=== PATIENT | male | born 1930 | race Caucasian/White ===

== ENCOUNTER 2020-08-20 20:17 | Inpatient (IN) ==
[2020-08-21] MEDS ORDERED: Ondansetron 4 MG/2 ML VIAL IVP PRN (01:10)
[2020-08-21] MEDS ORDERED: Acetaminophen 325 MG TABLET PO PRN (01:10)
[2020-08-21] MEDS ORDERED: Naloxone 0.4 MG/ML INJ IVP PRN (01:10)
[2020-08-21 01:53] LABS: Basophils % 0.6 %; Eosinophils # 0.3 K/mcL (0.0-0.6); Eosinophils % 5.2 %; Hematocrit 31.9 % (37.5-50.1); Hemoglobin 9.6 g/dL (12.9-16.9); Immature Granulocytes % 0.2 % (0-4); Lymphocytes % 18.3 %; Mean Corpuscular HGB Conc 30.1 g/dL (31.6-35.5); Mean Corpuscular Volume 99.7 fL (83.0-100.0); Mean Platelet Volume 9.8 fL (9.4-12.4); Monocytes # 0.5 K/mcL (0.0-1.3); Monocytes % 10.2 %; Neutrophils # 3.4 K/mcL (1.6-8.9); Platelet Count 133 K/mcL (140-400); Red Cell Distribution Width 16.5 % (11.5-14.5); Segmented Neutrophils % 65.5 %; White Blood Count 5.2 K/mcL (4.3-11.1)
[2020-08-21 02:02] LABS: INR 1.8
[2020-08-21 02:13] LABS: BUN/Creatinine Ratio 16 (6-26); Blood Urea Nitrogen 20 mg/dL (8-23); Calcium 8.8 mg/dL (8.6-10.3); Carbon Dioxide 36 mEq/L (23-29); Chloride 104 mEq/L (98-107); Glucose 108 mg/dL (70-105); Osmolality,Calculated 301 (280-300); Potassium 4.1 mEq/L (3.5-5.1); Sodium 144 mEq/L (136-145); eGFR For African Americans > 60 (> 60); eGFR For Non-African Americans 54 (> 60)
[2020-08-21] MEDS: Finasteride 5 MG TABLET PO SCH (12:50)
[2020-08-21] MEDS: Sennosides/Docusate Sodium TABLET PO SCH ×2 (12:51→22:04)
[2020-08-21] MEDS ORDERED: *HR* HYDROcodone/Acet 5/325 mg TABLET PO PRN (15:02)
[2020-08-21] MEDS: Furosemide 40 MG TABLET PO SCH (17:05)
[2020-08-21] MEDS: Gabapentin 300 MG CAPSULE PO SCH (22:04)
[2020-08-22 07:37] LABS: Basophils % 0.7 %; Eosinophils # 0.2 K/mcL (0.0-0.6); Eosinophils % 4.4 %; Hematocrit 30.9 % (37.5-50.1); Hemoglobin 9.3 g/dL (12.9-16.9); Immature Granulocytes % 0.2 % (0-4); Lymphocytes # 0.8 K/mcL (0.6-4.6); Lymphocytes % 18.2 %; Mean Corpuscular HGB Conc 30.1 g/dL (31.6-35.5); Mean Corpuscular Hemoglobin 30.1 pg (28.0-33.3); Mean Platelet Volume 10.2 fL (9.4-12.4); Monocytes # 0.4 K/mcL (0.0-1.3); Neutrophils # 3.1 K/mcL (1.6-8.9); Platelet Count 136 K/mcL (140-400); Red Blood Count 3.09 M/mcL (4.19-5.50); Red Cell Distribution Width 16.5 % (11.5-14.5); Segmented Neutrophils % 67.5 %; White Blood Count 4.6 K/mcL (4.3-11.1)
[2020-08-22 08:01] LABS: BUN/Creatinine Ratio 19 (6-26); Blood Urea Nitrogen 21 mg/dL (8-23); Calcium 8.8 mg/dL (8.6-10.3); Carbon Dioxide 34 mEq/L (23-29); Chloride 106 mEq/L (98-107); Glucose 101 mg/dL (70-105); Osmolality,Calculated 299 (280-300); Sodium 143 mEq/L (136-145); eGFR For African Americans > 60 (> 60); eGFR For Non-African Americans > 60 (> 60)
[2020-08-22] MEDS: Sennosides/Docusate Sodium TABLET PO SCH ×2 (09:53→20:42)
[2020-08-22] MEDS: Gabapentin 300 MG CAPSULE PO SCH ×3 (09:53→20:43)
[2020-08-22] MEDS: Finasteride 5 MG TABLET PO SCH (09:54)
[2020-08-22] MEDS: Metoprolol XL (24 HR) Succ 50 MG TAB.ER.24H PO SCH (09:54)
[2020-08-22] MEDS: Furosemide 40 MG TABLET PO SCH (09:54)
[2020-08-22] MEDS: Furosemide 20 MG TABLET PO SCH (16:04)
[2020-08-23 01:46] LABS: Hematocrit 32.9 % (37.5-50.1); Hemoglobin 9.7 g/dL (12.9-16.9); Mean Corpuscular HGB Conc 29.5 g/dL (31.6-35.5); Mean Corpuscular Hemoglobin 29.4 pg (28.0-33.3); Mean Corpuscular Volume 99.7 fL (83.0-100.0); Mean Platelet Volume 10.2 fL (9.4-12.4); Platelet Count 141 K/mcL (140-400); Red Cell Distribution Width 16.5 % (11.5-14.5); White Blood Count 4.8 K/mcL (4.3-11.1)
[2020-08-23 02:02] LABS: BUN/Creatinine Ratio 16 (6-26); Blood Urea Nitrogen 21 mg/dL (8-23); Calcium 8.7 mg/dL (8.6-10.3); Carbon Dioxide 34 mEq/L (23-29); Chloride 104 mEq/L (98-107); Glucose 94 mg/dL (70-105); Osmolality,Calculated 299 (280-300); Potassium 3.9 mEq/L (3.5-5.1); Sodium 143 mEq/L (136-145); eGFR For African Americans > 60 (> 60); eGFR For Non-African Americans 53 (> 60)
[2020-08-23] MEDS: Sennosides/Docusate Sodium TABLET PO SCH ×2 (10:34→20:07)
[2020-08-23] MEDS: Cyanocobalamin (B-12) 1,000 MCG TABLET PO SCH (10:35)
[2020-08-23] MEDS: Gabapentin 300 MG CAPSULE PO SCH ×3 (10:35→20:07)
[2020-08-23] MEDS: Metoprolol XL (24 HR) Succ 50 MG TAB.ER.24H PO SCH (10:35)
[2020-08-23] MEDS: Furosemide 20 MG TABLET PO SCH ×2 (10:35→18:34)
[2020-08-23] MEDS: Finasteride 5 MG TABLET PO SCH (10:35)
[2020-08-24 05:55] LABS: Hematocrit 32.4 % (37.5-50.1); Hemoglobin 9.5 g/dL (12.9-16.9); Mean Corpuscular HGB Conc 29.3 g/dL (31.6-35.5); Mean Corpuscular Hemoglobin 29.6 pg (28.0-33.3); Mean Corpuscular Volume 100.9 fL (83.0-100.0); Mean Platelet Volume 9.9 fL (9.4-12.4); Platelet Count 146 K/mcL (140-400); Red Blood Count 3.21 M/mcL (4.19-5.50); Red Cell Distribution Width 16.5 % (11.5-14.5); White Blood Count 5.2 K/mcL (4.3-11.1)
[2020-08-24 06:14] LABS: BUN/Creatinine Ratio 18 (6-26); Blood Urea Nitrogen 22 mg/dL (8-23); Calcium 8.8 mg/dL (8.6-10.3); Carbon Dioxide 34 mEq/L (23-29); Chloride 105 mEq/L (98-107); Glucose 97 mg/dL (70-105); Osmolality,Calculated 299 (280-300); Sodium 143 mEq/L (136-145); eGFR For African Americans > 60 (> 60); eGFR For Non-African Americans 55 (> 60)
[2020-08-24] MEDS: Sennosides/Docusate Sodium TABLET PO SCH ×2 (09:47→21:07)
[2020-08-24] MEDS: Cyanocobalamin (B-12) 1,000 MCG TABLET PO SCH (09:48)
[2020-08-24] MEDS: Furosemide 20 MG TABLET PO SCH (09:50)
[2020-08-24] MEDS: Finasteride 5 MG TABLET PO SCH (09:50)
[2020-08-24] MEDS: Gabapentin 300 MG CAPSULE PO SCH ×3 (09:52→21:07)
[2020-08-24] MEDS: Metoprolol XL (24 HR) Succ 50 MG TAB.ER.24H PO SCH (09:52)
[2020-08-24] MEDS ORDERED: *HR* FentaNYL (PF) 100 MCG/2 ML VIAL ONE (16:40)
[2020-08-24] MEDS ORDERED: *HR* Propofol 200 MG/20 ML VIAL IVP ONE (16:40)
[2020-08-24] MEDS ORDERED: *HR* OxyCODONE Immed Rel 5 MG TABLET PO PRN (16:41)
[2020-08-24] MEDS ORDERED: Lidocaine -MPF 2% 2 ML VIAL ONE (16:41)
[2020-08-24] MEDS ORDERED: Ondansetron 4 MG/2 ML VIAL IVP PRN ×2 (16:41→19:15)
[2020-08-24] MEDS ORDERED: *HR* Labetalol 20 MG/4 ML SYRINGE IVP PRN (16:41)
[2020-08-24] MEDS ORDERED: Ondansetron 4 MG/2 ML VIAL ONE (17:15)
[2020-08-24] MEDS ORDERED: Clindamycin 600 MG/50 ML 600 MG/50 ML IV.SOLN IVPB ONE (17:21)
[2020-08-24] MEDS ORDERED: EPHEDrine 50 MG/ML VIAL ONE (17:31)
[2020-08-24] MEDS ORDERED: Acetaminophen 325 MG TABLET PO PRN (19:15)
[2020-08-24] MEDS ORDERED: *HR* HYDROcodone/Acet 5/325 mg TABLET PO PRN (19:15)
[2020-08-24] MEDS ORDERED: Naloxone 0.4 MG/ML INJ IVP PRN (19:15)
[2020-08-25] MEDS: Finasteride 5 MG TABLET PO SCH (08:08)
[2020-08-25] MEDS: Sennosides/Docusate Sodium TABLET PO SCH ×2 (08:09→20:08)
[2020-08-25] MEDS: Spironolactone 25 MG TABLET PO SCH (08:11)
[2020-08-25] MEDS: Gabapentin 300 MG CAPSULE PO SCH ×3 (08:11→20:08)
[2020-08-25] MEDS: Cyanocobalamin (B-12) 1,000 MCG TABLET PO SCH (08:11)
[2020-08-25] MEDS: Furosemide 20 MG TABLET PO SCH ×3 (08:12→23:13)
[2020-08-25 08:27] LABS: Basophils % 0.7 %; Eosinophils # 0.1 K/mcL (0.0-0.6); Eosinophils % 2.3 %; Hematocrit 33.4 % (37.5-50.1); Hemoglobin 9.8 g/dL (12.9-16.9); Immature Granulocytes % 0.2 % (0-4); Lymphocytes # 0.7 K/mcL (0.6-4.6); Lymphocytes % 11.7 %; Mean Corpuscular HGB Conc 29.3 g/dL (31.6-35.5); Mean Corpuscular Hemoglobin 29.8 pg (28.0-33.3); Mean Corpuscular Volume 101.5 fL (83.0-100.0); Monocytes # 0.6 K/mcL (0.0-1.3); Monocytes % 9.4 %; Neutrophils # 4.7 K/mcL (1.6-8.9); Platelet Count 134 K/mcL (140-400); Red Blood Count 3.29 M/mcL (4.19-5.50); Red Cell Distribution Width 16.1 % (11.5-14.5); Segmented Neutrophils % 75.7 %; White Blood Count 6.1 K/mcL (4.3-11.1)
[2020-08-25 08:46] LABS: BUN/Creatinine Ratio 17 (6-26); Blood Urea Nitrogen 20 mg/dL (8-23); Calcium 8.9 mg/dL (8.6-10.3); Carbon Dioxide 35 mEq/L (23-29); Chloride 105 mEq/L (98-107); Glucose 83 mg/dL (70-105); Osmolality,Calculated 300 (280-300); Potassium 4.2 mEq/L (3.5-5.1); Sodium 144 mEq/L (136-145); eGFR For African Americans > 60 (> 60); eGFR For Non-African Americans 59 (> 60)
[2020-08-25] MEDS ORDERED: Metoprolol XL (24 HR) Succ 50 MG TAB.ER.24H PO SCH (09:00)
[2020-08-25 11:51] LABS: ABG Base Excess 7 mEq/L (-2 to 3); ABG HCO3 35 mEq/L (21-27); ABG Oxygen Saturation 74 % (95-98); ABG PCO2 68 mmHg (35-45); ABG PH 7.32 pH Units (7.32-7.45); ABG PO2 44 mmHg (85-104); ABG TCO2 37 mEq/L (20-26)
[2020-08-25 23:23] LABS: Hematocrit 35.3 % (37.5-50.1); Hemoglobin 10.4 g/dL (12.9-16.9); Mean Corpuscular HGB Conc 29.5 g/dL (31.6-35.5); Mean Corpuscular Hemoglobin 29.1 pg (28.0-33.3); Mean Corpuscular Volume 98.9 fL (83.0-100.0); Mean Platelet Volume 10.6 fL (9.4-12.4); Platelet Count 143 K/mcL (140-400); Red Blood Count 3.57 M/mcL (4.19-5.50); Red Cell Distribution Width 16.1 % (11.5-14.5); White Blood Count 7.8 K/mcL (4.3-11.1)
[2020-08-26 04:46] LABS: Hematocrit 32.2 % (37.5-50.1); Hemoglobin 9.6 g/dL (12.9-16.9); Mean Corpuscular HGB Conc 29.8 g/dL (31.6-35.5); Mean Corpuscular Hemoglobin 30.1 pg (28.0-33.3); Mean Corpuscular Volume 100.9 fL (83.0-100.0); Mean Platelet Volume 10.3 fL (9.4-12.4); Platelet Count 141 K/mcL (140-400); Red Blood Count 3.19 M/mcL (4.19-5.50); Red Cell Distribution Width 15.9 % (11.5-14.5); White Blood Count 6.7 K/mcL (4.3-11.1)
[2020-08-26 04:52] LABS: BUN/Creatinine Ratio 16 (6-26); Blood Urea Nitrogen 20 mg/dL (8-23); Calcium 8.6 mg/dL (8.6-10.3); Carbon Dioxide 34 mEq/L (23-29); Chloride 103 mEq/L (98-107); Glucose 99 mg/dL (70-105); Osmolality,Calculated 295 (280-300); Potassium 4.5 mEq/L (3.5-5.1); Sodium 141 mEq/L (136-145); eGFR For African Americans > 60 (> 60); eGFR For Non-African Americans 56 (> 60)
[2020-08-26] MEDS: Gabapentin 300 MG CAPSULE PO SCH ×3 (07:42→21:17)
[2020-08-26] MEDS: Sennosides/Docusate Sodium TABLET PO SCH ×2 (07:43→21:17)
[2020-08-26] MEDS: Spironolactone 25 MG TABLET PO SCH (07:43)
[2020-08-26] MEDS: Finasteride 5 MG TABLET PO SCH (07:43)
[2020-08-26] MEDS: Cyanocobalamin (B-12) 1,000 MCG TABLET PO SCH (07:43)
[2020-08-26] MEDS: Furosemide 20 MG TABLET PO SCH (07:43)
[2020-08-26] MEDS: Metoprolol XL (24 HR) Succ 25 MG TAB.ER.24H PO SCH (07:44)
[2020-08-26] MEDS ORDERED: Furosemide 40 MG TABLET PO SCH (08:00)
[2020-08-26] MEDS ORDERED: Perflutren Lipid Microsphere 1.3 ML in 0.9 % Sodium Chloride 8.7 ML IVP PRN (08:10)
[2020-08-26 10:50] LABS: % Iron Saturation 11 % (20-55); Iron 31 mcg/dL (65-175); Transferrin 204 mg/dL (203-362)
[2020-08-26 11:08] LABS: Ferritin 42 ng/mL (20-250)
[2020-08-26 11:23] LABS: Folate 10.3 ng/mL (3.0-16.0)
[2020-08-26] MEDS ORDERED: Iron Sucrose Complex 400 MG in 0.9 % Sodium Chloride 250 ML IVPB ONE (16:44)
[2020-08-26] MEDS: Furosemide 40 MG/4 ML VIAL IVP SCH (21:26)
[2020-08-27 02:26] LABS: Hemoglobin 8.7 g/dL (12.9-16.9); Mean Corpuscular Hemoglobin 29.2 pg (28.0-33.3); Mean Corpuscular Volume 100.7 fL (83.0-100.0); Mean Platelet Volume 10.6 fL (9.4-12.4); Platelet Count 133 K/mcL (140-400); Red Blood Count 2.98 M/mcL (4.19-5.50); Red Cell Distribution Width 16.2 % (11.5-14.5); White Blood Count 5.7 K/mcL (4.3-11.1)
[2020-08-27 02:36] LABS: BUN/Creatinine Ratio 18 (6-26); Blood Urea Nitrogen 23 mg/dL (8-23); Calcium 8.4 mg/dL (8.6-10.3); Carbon Dioxide 34 mEq/L (23-29); Chloride 103 mEq/L (98-107); Glucose 101 mg/dL (70-105); Magnesium 1.9 mg/dL (1.6-2.6); Osmolality,Calculated 298 (280-300); Phosphorous 2.7 mg/dL (2.7-4.5); Potassium 4.3 mEq/L (3.5-5.1); Sodium 142 mEq/L (136-145); eGFR For African Americans > 60 (> 60); eGFR For Non-African Americans 52 (> 60)
[2020-08-27] MEDS: Metoprolol XL (24 HR) Succ 25 MG TAB.ER.24H PO SCH (08:48)
[2020-08-27] MEDS: Furosemide 40 MG/4 ML VIAL IVP SCH ×2 (08:53→21:20)
[2020-08-27] MEDS: Gabapentin 300 MG CAPSULE PO SCH ×3 (08:53→21:20)
[2020-08-27] MEDS: Cyanocobalamin (B-12) 1,000 MCG TABLET PO SCH (08:54)
[2020-08-27] MEDS: Finasteride 5 MG TABLET PO SCH (08:54)
[2020-08-27] MEDS: Spironolactone 25 MG TABLET PO SCH (08:54)
[2020-08-27] MEDS: Sennosides/Docusate Sodium TABLET PO SCH ×2 (09:00→21:20)
[2020-08-27 18:48] VITALS: BP 100/63
== END 2020-08-27 22:19 | DRG 698 ==
LOC: 3ANU → SUATTDRO 08-21 00:48
PROVIDERS: ADMIT Internal Medicine; ATTEND Internal Medicine